=== PATIENT | female | born 1945 | race Caucasian/White ===

== ENCOUNTER → 2017-06-24 | Outpatient (CLI) | payer OTHER | LOC: FIMAGING 12:04 | PROVIDERS: ATTEND Physician Assistant | DX: Z12.31 Encounter for screening mammogram for malignant neoplasm of breast (principal); Z80.3 Family history of malignant neoplasm of breast ==

== ENCOUNTER → 2017-07-04 | Outpatient (CLI) | payer OTHER | LOC: BMCIMAGING 11:03 | PROVIDERS: ATTEND Physician Assistant | DX: Z13.820 Encounter for screening for osteoporosis (principal); M81.0 Age-related osteoporosis without current pathological fracture ==

== ENCOUNTER → 2018-07-17 | Outpatient (CLI) | payer OTHER | LOC: FIMAGING 06-26 10:25 | PROVIDERS: ATTEND Physician Assistant | DX: Z12.31 Encounter for screening mammogram for malignant neoplasm of breast (principal); Z80.3 Family history of malignant neoplasm of breast ==

== ENCOUNTER 2018-08-11 05:26 | Day surgery (SDC) | payer OTHER ==
--- NOTE | 2018-08-10 15:17 | SOAPPROG ---
SOAP Progress Note Assessment/Plan: HISTORY AND PHYSICAL Name JACKIE SIMMONS (73yo, F) ID# [id number] Appt. Date/Time 08/04/2018 02:45PM 1945 Service Dept. MAIN OFFICE Provider ROSA LARIOS M.D. Insurance Med Primary: MED[employer]ARE-[place] (MEDICARE) Insurance # : [id number] Med Secondary: [employer] Insurance # : [id number] Prescription: CMX - Member is eligible. details Chief Complaint Patient presents today with a right distal ulna fracture and styloid fracture s/ p fall while dancing and partner fell on her. Seen at [facility] ER night of injury, xray and splinted Vitals None recorded. Allergies Reviewed Allergies EPINEPHRINE: Dizziness (Moderate to severe) Medications proGESTerone micronized 100 mg capsule 07/03/18 filled [facility] valACYclovir 1 gram tablet 07/03/18 filled [facility] valACYclovir 500 mg tablet 05/14/18 filled [facility] Vaccines None recorded. 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 Past Pregnancies None recorded. Screening None recorded. HPI This is a very pleasant 73 year old female with: -08/01/18 --right distal ulnar shaft fracture (complete, displaced) after a fall onto her outstretched RUE while dancing -08/01/18 -- seen at [facility] ER for right wrist radiographs and sugar tong splinting She presents today for her first hand surgery evaluation. Of note, she was recently seen by her PCP who referred her to undergo an echocardiogram and a 24-hour halter monitor due to an arrhythmia which was identified on EKG. ROS ROS as noted in the HPI Physical Exam Patient is a 73-year-old female. Bilateral wrist examination Inspection/palpation: Right: Sugar tong splint is CDI Left: Normal resting posture. Wrist ROM Wrist Flexion: CECILIO / 90 / 90 Extension: CECILIO / 90 / 90 Forearm Supination:CECILIO / 0-80 / 0-80 Pronation:CECILIO / 0-80 / 0-80 Wrist/hand strength (R / L / Normal) EDC: 3 / / 5 EPL (PIN): 3 / 5 / 5 FPL (AIN): FDS (C8): FDP (C8): FDP-I (C8 / AIN): DI (C8-T1): PI (C8-T1): Wrist/hand sensory Median: + / + / + Radial: + / + / + Ulnar: + / + / + Assessment / Plan This is a very pleasant 73 year old female with: -08/01/18 --right distal ulnar shaft fracture (complete, displaced) after a fall onto her outstretched RUE while dancing -08/01/18 -- seen at [facility] ER for right wrist radiographs and sugar tong splinting For the right wrist: - I have discussed with the patient the risks, benefits, alternatives and complications associated with both non-operative (specifically, MRI) and operative (specifically, right distal ulna CRPF vs. ORIF) forms of treatment - The patient fully understands the risks, benefits, alternatives, and complications associated with these forms of treatment and wishes to proceed with operative intervention as outlined above - She has signed the informed consent form for surgery and surgery will be scheduled for the near future. - In the interim, she will remain in her current splint and continue to be strict NWB on her RUE - We will also try to coordinate the patient's needed cardiology testing for the near future 1. Fracture of distal end of ulna - Right S52.691A: Other fracture of lower end of right ulna, initial encounter for closed fracture 2. Fracture of ulnar styloid - Right S52.611A: Displaced fracture of right ulna styloid process, initial encounter for closed fracture XR, WRIST Side: RIGHT displaced distal ulna fracture and styloid fracture Return to Office None recorded. Encounter Sign-Off Encounter signed-off by Rosa Larios M.D., 08/05/2018. 08/10/18 15:16 ICD10 Worksheet Patient Problems: Problems Problem Status Onset Right distal ulnar fracture Acute - ICD10 Problem Qualifiers (1) Right distal ulnar fracture
[2018-08-11] MEDS ORDERED: LR 1,000 ML IV ONE (05:54)
[2018-08-11] MEDS ORDERED: ceFAZolin 2 GM/DEXTROSE 100 ML IV ONE (06:52)
--- NOTE | 2018-08-11 06:53 | PDHPUP ---
History & Physical Update H&P update statement: This history and physical update is based on an assessment of the patient which was completed after admission or registration (within 24 hours), but prior to the surgery/procedure. H&P update: H&P reviewed & patient examined, no change in patient's condition since H&P completed
--- NOTE | 2018-08-11 06:56 | PDANEPAE ---
ANE Past Medical History - Cardiovascular History Hx Hypertension: No Hx Arrhythmias: No Hx Chest Pain: No Hx Coronary Artery / Peripheral Vascular Disease: No Hx CHF / Valvular Disease: No Hx Palpitations: No - Pulmonary History Hx COPD: No Hx Asthma/Reactive Airway Disease: No Hx Recent Upper Respiratory Infection: No Hx Oxygen in Use at Home: No Hx Sleep Apnea: No - Neurologic History Hx Cerebrovascular Accident: No Hx Seizures: No Hx Dementia: No - Endocrine History Hx Diabetes: No - Renal History Hx Renal Disorders: No - Liver History Hx Hepatic Disorders: No - Neurological & Psychiatric Hx Hx Neurological and Psychiatric Disorders: No - Cancer History Hx Cancer: No - Congenital Disorder History Hx Congenital Disorders: No - GI History Hx Gastrointestinal Disorders: No ANE Review of Systems Review of Systems: - Exercise capacity METS (RN): 5 METS ANE Patient History - Allergies Allergies/Adverse Reactions: codeine Allergy (Verified 08/11/18 06:27) Vomiting epinephrine Allergy (Verified 08/11/18 05:49) - Home Medications Home Medications: Progesterone, Micronized [Progesterone] 100 mg 08/11/18 [Last Taken 08/06/18] valACYclovir 1 gm PO 08/11/18 [Last Taken Unknown] valACYclovir [Valtrex (*)] 08/11/18 [Last Taken 07/28/18] - NPO status NPO Since - Liquids (Date): 08/10/18 NPO Since - Liquids (Time): 22:00 NPO Since - Solids (Date): 08/10/18 NPO Since - Solids (Time): 18:00 - Smoking Hx Smoking Status: Never smoked - Family Anes Hx Family Hx Anesthesia Complications: none ANE Labs/Vital Signs - Vital Signs Blood Pressure: 125/78 Heart Rate: 86 Respiratory Rate: 16 O2 Sat (%): 94 Height: 162.56 cm Weight: 55.338 kg ANE Physical Exam - Airway Mallampati Score: Class 1 - ASA Status ASA Status: II ANE Anesthesia Plan Anesthesia Plan: GA w LMA
[2018-08-11] MEDS ORDERED: CEFAZOLIN 2 GM/DEXTROSE/100 ML BAG IV ONE (07:03)
[2018-08-11] MEDS ORDERED: MIDAZOLAM 2 MG/2 ML VIAL ONE (07:06)
[2018-08-11] MEDS ORDERED: fentaNYL 100 MCG/2 ML INJ ONE (07:07)
[2018-08-11] MEDS ORDERED: ONDANSETRON 4 MG/2 ML VIAL ONE (07:07)
[2018-08-11] MEDS ORDERED: PROPOFOL 200 MG/20 ML VIAL ONE (07:07)
[2018-08-11] MEDS ORDERED: LIDOCAINE 2% JELLY 6 ML TOPICAL SYR ONE (07:07)
[2018-08-11] MEDS ORDERED: METOCLOPRAMIDE 10 MG/2 ML VIAL ONE (07:08)
[2018-08-11] MEDS ORDERED: HYDROCODONE/APAP 5/325 TAB PO PRN (09:05)
[2018-08-11] MEDS ORDERED: NALOXONE HCL 0.4 MG/ML INJ IVP PRN (09:05)
[2018-08-11] MEDS ORDERED: fentaNYL 100 MCG/2 ML INJ IVP PRN (09:05)
[2018-08-11] MEDS ORDERED: LR 500 ML IV PRN (09:05)
[2018-08-11] MEDS ORDERED: PROMETHAZINE HCL 25 MG/ML INJ IVP PRN (09:05)
[2018-08-11] MEDS ORDERED: DEXAMETHASONE 4 MG/ML VIAL IVP PRN (09:05)
--- NOTE | 2018-08-11 09:06 | POSTANESTH ---
Post Anesthetic Evaluation Cardiovascular Status: Similar to Pre-Op Cond Respiratory Status: Normal, Stable Level of Consciousness/Mental Status: Can Participate in Eval Pain Control: Adequate, Prn Tx Ordered Nausea/Vomiting Control: Adequate, Prn Tx Ordered Complications Possibly Related to Anesthesia: None Noted
[2018-08-11] MEDS ORDERED: PROMETHAZINE HCL 25 MG/ML INJ ONE (09:44)
[2018-08-11 11:41] VITALS: BP 94/60
--- NOTE | 2018-08-12 14:55 | GOP ---
[f rep st] OPERATIVE REPORT PATIENT: TROYNovember DATE OF SERVICE: 08/11/18 PATIENT DATE OF : 1945 SURGEON: Kyler Hagan M.D. HAND BUTTON SPLITTER: Estela Mei PA-C Mrs. Jarquin assistance was medically necessary for patient positioning and the retraction of vital structures. ANESTHESIA: General / regional anesthesia by surgeon PRE-OPERATIVE DIAGNOSES: Right distal ulnar shaft fracture (ICD-10 code S52.601A right distal ulnar shaft fracture) POST-OPERATIVE DIAGNOSES: Right distal ulnar shaft fracture (ICD-10 code S52.601A right distal ulnar shaft fracture) OPERATIVE PROCEDURES: CPT code 29375 Right distal ulnar shaft open reduction and internal fixation CPT code 03064 Fluoroscopy by surgeon, up to one hour CPT code 01786 Application of a long-arm splint Modifier 47 Regional anesthesia by surgeon EBL: 1cc COMPLICATIONS: None TOURNIQUET TIME: 71 minutes at 250 mmHg IMPLANTS: Synthes 2.4mm LCDC locking plate with a combination of 2.4mm locking and non-locking screws BRIEF CLINICAL NOTE: This is a very pleasant 73 year old female with a significant history for a right distal ulnar shaft fracture (complete and displaced). As such, I discussed the risks, benefits, alternatives, and complications associated with both non-operative (specifically, observation, splinting) and operative (specifically, right distal ulnar shaft open reduction and internal fixation) forms of treatment with the patient. The patient fully understand the risks, benefits, alternatives, and complications associated with both forms of treatment and they wished to proceed with operative intervention as outlined above. The patient and his mother have signed the informed consent form for surgery. OPERATIVE NOTE: On the day of surgery, all of the patients questions were answered. The patient was then transferred from the pre-operative area into the operating room and a formal, Time-Out procedure was performed. The patient was identified by name, medical record number, social security number, and date of . In addition, the patients right upper extremity was identified as the correct portion of the patients body for surgery with the patients right ulna being identified as the correct portion of that extremity for surgery. The anesthesia team administered pre-operative antibiotics for prophylaxis. The brachium was then padded with webril and an 18-inch tourniquet was applied. The right upper extremity was then prepped and draped in the normal sterile fashion. A sterile marking pen was then utilized to boogie out a longitudinal incision overlying the subcutaneous border of the ulna. An Esmarch was then utilized to exsanguinate the upper extremity and tourniquet was inflated to 250mm Hg. A number 15 blade was then used to incise the skin overlying the distal ulnar shaft. Meticulous hemostasis was obtained throughout the subcutaneous plane. The interval between the ECU and FCU muscle bellies was then carefully developed to expose the underlying ulnar shaft. The periosteum was split longitudinally to expose the fracture site. The fracture was copiously irrigated with sterile normal saline to remove all fracture hematoma. The ulnar shaft was then reduced with two lobster claw reduction forceps. PA, lateral, and oblique C-arm images demonstrated an anatomic reduction of the ulnar shaft and a congruent distal radio-ulnar joint in all views. A Synthes 2.4mm LCDC locking plate was applied to the volar aspect of the distal ulnar shaft. The distal screws holes were filled with 2.4 mm locking screws and the proximal screw holes were filled with 2.4mm cortical screws. PA, lateral, and oblique C-arm images demonstrated an anatomic reduction of the distal ulnar shaft with appropriate implant positioning and length in all views. In addition, the distal radio-ulnar joint was congruent and reduced in all views. These images were printed and saved. Passive right wrist flexion and extension and forearm prono-supination demonstrated smooth arcs of motion. The incision was copiously irrigated with sterile normal saline. The subcutaneous plane was re-aproximated with 3-0 vicryl sutures and the skin was re-approximated with a running 4-0 Monocryl. The skin was then cleaned with sterile normal saline and dried. Dermabond was applied to the incision. A mixture of 1% lidocaine and 0.5% Marcaine was utilized to perform a regional block of the operative site. A Xeroform gauze dressing was applied followed by a dry sterile dressing and a sugar-tong splint maintaining the elbow in 90 degrees of flexion and the forearm in neutral rotation. Once the splint was completely in place, the tourniquet was deflated. After complete deflation of the tourniquet, all fingers and the thumb demonstrated brisk capillary refill. The patient was then reversed from anesthesia and transferred from the operating room table onto the post-operative gurney and transferred from the operating room to the post-anesthesia care unit in stable condition. POST-OPERATIVE PLAN: The patient will remain in the current splint and dressing for the next 1.5 weeks. The patient will be strict [id number] on the operative side. I will see the patient back in the office in 1.5 weeks for splint removal, repeat right wrist radiographs, and transition into a short- arm cast for an additional 4.5 weeks. /[id number]/MODL MTDD
== END 2018-08-11 11:30 | disposition home or self-care (01) ==
LOC: FSGY 05:26
PROVIDERS: ATTEND Orthopaedic Surgery Hand Surgery
PROC: 0PSK04Z Reposition Right Ulna with Internal Fixation Device, Open Approach (ICD-10-PCS; principal; 2018-08-11 07:15)
DX: S52.691A Other fracture of lower end of right ulna, initial encounter for closed fracture (principal); W03.XXXA Other fall on same level due to collision with another person, initial encounter; Y93.41 Activity, dancing; Y92.9 Unspecified place or not applicable
CPT/HCPCS: C1713; J0690; J2250; J2405; J2550; J2704; J2765; J3010